=== PATIENT | female | born 1975 | race Caucasian/White ===

== ENCOUNTER 2021-09-23 12:57 | Emergency (ER) | payer OTHER ==
[~2021-09-23] VITALS: Ht 167.6 cm; Wt 84.1 kg
[2021-09-23] MEDS ORDERED: BACITRACIN OINTMENT 30GM TUBE TOP ONE (13:35)
[2021-09-23] MEDS ORDERED: BOOSTRIX/ADACEL VACCINE (DIPHTH/PERTUSS/ACELL/TETANUS) 0.5ML SYR IM ONE (13:35)
[2021-09-23] MEDS ORDERED: KETOROLAC TROMETHAMINE 10 MG TAB PO ONE (14:15)
[2021-09-23] MEDS ORDERED: CLINDAMYCIN 900 MG in IV 1 EA IV ONE (14:25)
[2021-09-23] MEDS ORDERED: ceFAZolin SOD 2 GM in IV 1 EA IV ONE (14:30)
[2021-09-23] MEDS ORDERED: KETOROLAC 30 MG/ML 1ML VIAL IV ONE (14:35)
[2021-09-23 15:21] LABS: BASO % 0.3 % (0.0-1.0); EOS % 0.1 % (0.0-3.0); HEMATOCRIT 39.4 % (36.0-47.0); HEMOGLOBIN 13.4 g/dl (12.0-15.5); LYMPH # 1.3 10^3/uL (1.5-5.0); LYMPH % 8.8 % (24.0-44.0); MEAN CORPUSCULAR HEMOGLOBIN 30.4 pg (27.0-33.0); MEAN CORPUSCULAR VOLUME 89.3 fl (80.0-96.0); MONO # 0.8 10^3/uL (0.0-0.8); MONO % 5.6 % (2.0-8.0); NEUTROPHILS # 12.1 10^3/uL (1.5-8.5); NEUTROPHILS % 84.7 % (36.0-66.0); PLATELET COUNT, AUTOMATED 293 10^3/uL (150-450); RED BLOOD COUNT 4.41 10^6/uL (4.00-5.40); WHITE BLOOD COUNT 14.3 10^3/uL (4.0-10.0)
[2021-09-23] MEDS ORDERED: JENC0.35 PO (15:46)
[2021-09-23 15:50] LABS: BLOOD UREA NITROGEN 13 MG/DL (7-18); CARBON DIOXIDE LEVEL 25 MEQ/L (21-32); CHLORIDE LEVEL 111 MEQ/L (98-107); CREATININE FOR GFR 0.86 MG/DL (0.55-1.30); GLOMERULAR FILTRATION RATE > 60.0 (>58); GLUCOSE, FASTING 89 MG/DL (70-100); POTASSIUM SERUM 4.5 MEQ/L (3.5-5.1); SODIUM LEVEL 141 MEQ/L (136-145)
[2021-09-23] MEDS ORDERED: HOME MED LIST COMPLETE! XX SCH (15:50)
[2021-09-23 16:01] LABS: RSV AMPLIFICATION NEGATIVE (NEGATIVE)
[2021-09-23 16:42] VITALS: BP 134/69
[2021-09-23] MEDS ORDERED: CEPH500C PO (22:09)
== END 2021-09-23 22:55 | disposition home or self-care (01) ==
LOC: M ED 12:57
DX: S92.411A Displaced fracture of proximal phalanx of right great toe, initial encounter for closed fracture (principal); S92.511A Displaced fracture of proximal phalanx of right lesser toe(s), initial encounter for closed fracture; V86.95XA Unspecified occupant of 3- or 4- wheeled all-terrain vehicle (ATV) injured in nontraffic accident, initial encounter; Y92.828 Other wilderness area as the place of occurrence of the external cause; Z79.3 Long term (current) use of hormonal contraceptives; Z88.8 Allergy status to other drugs, medicaments and biological substances; F12.20 Cannabis dependence, uncomplicated
CPT/HCPCS: 73630; 80048; 85025; 87631; 90471; 90715; 96365; 96366; 96375; 99284; J0690; J1885

== ENCOUNTER → 2021-11-16 | Outpatient (CLI) | payer OTHER ==
[~2021-11-16] MED LIST: CEPH500C PO; JENC0.35 PO
== END ==
LOC: M SOG 08:25
PROVIDERS: ATTEND Orthopaedic Surgery
DX: S92.411A Displaced fracture of proximal phalanx of right great toe, initial encounter for closed fracture (principal)

== ENCOUNTER 2022-04-16 20:27 | Emergency (ER) | payer OTHER ==
[~2022-04-16] VITALS: Ht 167.6 cm; Wt 93.6 kg
[2022-04-16] MEDS ORDERED: NEOSPORIN OINT 0.9 GM PKT TOP ONE (22:15)
[2022-04-16] MEDS ORDERED: LIDOCAINE 1% MDV 20ML VIAL SC ONE (22:15)
[2022-04-16 23:30] VITALS: BP 116/86
== END 2022-04-16 23:31 | disposition home or self-care (01) ==
LOC: M ED 20:27
DX: S01.81XA Laceration without foreign body of other part of head, initial encounter (principal); W22.8XXA Striking against or struck by other objects, initial encounter; Z88.8 Allergy status to other drugs, medicaments and biological substances; Z79.899 Other long term (current) drug therapy